=== PATIENT | male | born 1970 | race Caucasian/White ===

== ENCOUNTER 2016-06-27 08:24 | Emergency (ER) | payer OTHER ==
[2016-06-27 08:31] VITALS: RESP 16; TEMP 97.9
--- NOTE | 2016-06-27 08:39 | CPEKG ---
Heart Rate: 78 RR Interval: 769 P-R Interval: 204 QRSD Interval: 88 QT Interval: 376 QTC Interval: 429 P [place]: 50 QRS [place]: -21 T Wave [place]: 13 EKG Severity - OTHERWISE NORMAL ECG - EKG Impression: SINUS RHYTHM EKG Impression: BORDERLINE LEFT AXIS DEVIATION Electronically Signed By: Tabitha Barth 27-Jun-2016 16:27:12
[2016-06-27 08:55] LABS: % IMMATURE GRANULYOCYTES 0.3 % (0.0-1.1); ABSOLUTE IMMATURE GRANULOCYTES 0.02 10^3/uL (0.00-0.10); ADD DIFF? NO; ADD MORPH? NO; ADD SCAN? NO; ATYPICAL LYMPHOCYTE FLAG 0 (0-99); FRAGMENT RBC FLAG 0 (0-99); HEMATOCRIT 49.6 % (40.0-51.0); HEMOGLOBIN 17.3 g/dL (13.7-17.5); LEFT SHIFT FLG 0 (0-99); LIPEMIA HEMOLYSIS FLAG 90 (0-99); MEAN CELL HEMOGLOBIN 29.3 pg (27.9-34.1); MEAN CELL HEMOGLOBIN CONCENTR. 34.9 g/dL (32.4-36.7); MEAN CELL VOLUME 84.1 fL (81.5-99.8); MEAN PLATELET VOLUME 9.1 fL (8.7-11.7); PLATELET CLUMPS FLAG 0 (0-99); PLATELET COUNT 219 10^3/uL (150-400); RED CELL DISTRIBUTION WIDTH 12.4 % (11.5-15.2)
[2016-06-27 09:13] LABS: ANION GAP 11 mEq/L (8-16); CALCIUM 9.4 mg/dL (8.5-10.4); CARBON DIOXIDE 22 mEq/l (22-31); CHLORIDE 108 mEq/L (97-110); GLOMERULAR FILTRATION RATE > 60; GLUCOSE 116 mg/dL (70-100); POTASSIUM 4.2 mEq/L (3.5-5.2); SODIUM 141 mEq/L (134-144)
[2016-06-27 09:24] LABS: TROPONIN I < 0.012 ng/mL (0-0.034)
--- NOTE | 2016-06-27 09:28 | EDPHY ---
H & P Stated Complaint: L sided CP since yesterday that increases with movement Time Seen by Provider: 06/27/16 09:22 HPI/ROS: CHIEF COMPLAINT: Chest pain. HISTORY OF PRESENT ILLNESS: The patient is a 46 year old male presenting with intermittent chest pain that started 2 days ago. The chest pain is localized to the left side and is non-radiating. This pain is intermittent in nature and it lasts for a few seconds. Yesterday the pain progressively worsened and increased in frequency. The pain woke him from sleep multiple times last night, whenever he moved around. He states his pain is worse with bending forward, moving his chest wall, turning, and blowing his nose. He denies recent cold- like symptoms. He denies fever, nausea, vomiting, or diarrhea. No recent travel. No history of blood clots. REVIEW OF SYSTEMS: Aside from elements discussed in the HPI, a comprehensive 10-point review of systems was reviewed and is negative. PAST MEDICAL HISTORY: Denies. Family History: Father and brother with cardiac disease. SOCIAL HISTORY: Nonsmoker. Alcohol use. VITAL SIGNS: Reviewed by me GENERAL: Well-developed, well-nourished, resting comfortably in no respiratory distress. HEENT: Atraumatic. Eyes: No icterus, no injection. Mouth: moist mucous membranes. No erythema or lesions. Neck: supple with no adenopathy. LUNGS: Clear to auscultation bilaterally, no wheezes, rhonchi or rales. No chest wall tenderness. No palpable pain. CARDIAC: Regular rate and rhythm, no rubs, murmurs or gallops. ABDOMEN: Soft, nontender, nondistended, bowel sounds normal. BACK: No CVA tenderness. EXTREMITIES: No trauma. No edema. Range of motion is normal throughout. NEURO: Alert and oriented, grossly nonfocal. SKIN: Warm and dry, no rash. PSYCHIATRIC: Normal mentation, no agitation. Portions of this note were transcribed by a medical affairs leader. I personally performed a history, physical exam, medical decision making, and confirmed accuracy of information the transcribed note. Source: Patient - Personal History Current Tetanus Diphtheria and Acellular Pertussis (TDAP): Unsure - Medical/Surgical History Other PMH: healthy - Social History Smoking Status: Never smoked Constitutional: Initial Vital Signs Temperature (C) 36.6 C 06/27/16 08:25 Heart Rate 81 06/27/16 08:25 Respiratory Rate 16 06/27/16 08:25 Blood Pressure 154/97 H 06/27/16 08:25 O2 Sat (%) 98 06/27/16 08:25 O2 Delivery Mode Room Air Allergies/Adverse Reactions: No Known Allergies Allergy (Unverified 06/27/16 08:27) Home Medications: Medication Instructions Recorded Doxycycline Hyclate [Vibramycin 100 mg PO 06/27/16 100 MG (*)] Medical Decision Making - Diagnostics EKG Interpretation: The 12 lead EKG was interpreted by myself. See hard copy and/or "tracemaster" electronic copy for interpretation: Sinus rhythm, borderline left axis deviation. Imaging: X-ray: chest was obtained. I viewed the images myself on the PACS system. My interpretation of the images is: Normal. The radiologist interpretation is no acute disease. I discussed the x-ray findings with the patient. ED Course/Re-evaluation: Troponin and D-dimer are negative. Chest x-ray was ordered. EKG is normal. 46 year old with no cardiac risk factors presenting with chest pain worsening with movements of chest wall. No palpable pain. EKG, trop, ddimer all negative. Symptoms present for 2 days. Improved with toradol. Suspect musculoskeletal cause. Will dc with NSAID and follow up as needed. Usual precautions regarding chest pain given to patient. Differential Diagnosis: After history and physical examination, the differential for chest pain was considered, including but not limited to, myocardial ischemia, acute coronary syndrome, pulmonary embolus, chest wall pain, pleural inflammation and pulmonary infectious causes. - Data Points Laboratory Results: Laboratory Results 06/27/16 08:47 06/27/16 08:47 Medications Given: Discontinued Medications Ketorolac Tromethamine (Toradol) 15 mg IVP EDNOW ONE Stop: 06/27/16 10:09 Last Admin: 06/27/16 10:44 Dose: 15 mg Departure - Departure Disposition: Home, Routine, Self-Care Clinical Impression: Pleuritic chest pain Chest pain Qualifiers: Chest pain type: unspecified Qualified Code(s): R07.9 - Chest pain, unspecified Condition: Good Instructions: Chest Pain (ED), Pleurisy (ED) Additional Instructions: 1. Take 600mg Ibuprofen every 6-8 hours as needed for pain. 2. You have been referred to the [facility] primary care physician. Call today to arrange a followup appointment. Be sure to mention that you were in the emergency department today. Referrals: Lima Berry MD [Medical Doctor] - As per Instructions Report Scribed for: Tabitha Barth Report Scribed by: Qian Ash Date of Report: 06/27/16 Time of Report: 09:28
[2016-06-27] MEDS ORDERED: KETOROLAC 15 MG/1 ML SDV IVP ONE (10:08)
[2016-06-27 10:59] VITALS: BP 141/90; PULSE 61; O2SAT 99
== END 2016-06-27 11:25 | disposition home or self-care (01) ==
DX: R07.89 Other chest pain (principal)
CPT/HCPCS: 96374; J1885